=== PATIENT | female | born 1945 | race American Indian/Alaskan Native ===

== ENCOUNTER 2017-08-18 13:18 | Outpatient (CLI) | payer MEDICARE ==
--- NOTE | 2017-08-18 14:11 | XRay Report ---
Bilateral shoulder: History: Shoulder pain. Findings: There is moderate arthritic changes noted at the a.c. joint and glenohumeral joint bilaterally. There is deformity noted of the outer acromion with ossification in the adjacent region at the right shoulder and similar changes left shoulder with calcification instead of ossification. Irregularity of the greater tuberosity bilaterally. Impression: Arthritic changes at the a.c. joint and glenohumeral joint bilaterally. Additional changes related to old injury and/or chronic impingement bilaterally.
== END 2017-08-18 13:19 | disposition home or self-care (01) ==
LOC: SPVIMAG 13:18
PROVIDERS: ATTEND Orthopaedic Surgery Sports Medicine
DX: M19.011 Primary osteoarthritis, right shoulder (principal); M19.012 Primary osteoarthritis, left shoulder; M25.812 Other specified joint disorders, left shoulder; M25.811 Other specified joint disorders, right shoulder

== ENCOUNTER 2017-10-28 14:38 | Outpatient (CLI) | payer MEDICARE ==
--- NOTE | 2017-10-28 15:16 | XRay Report ---
RIGHT HIP, 2 views: History: Right hip pain. Mild osteopenia. Minimal osteoarthritic changes are identified at the right hip. No evidence for fracture, dislocation, bone lesion or osteonecrosis. 4.5 cm calcified uterine fibroid is noted in the right side of the pelvis. IMPRESSION: Mild osteopenia. Mild degenerative changes.
== END 2017-10-28 14:39 | disposition home or self-care (01) ==
LOC: SPVIMAG 14:38
PROVIDERS: ATTEND Orthopaedic Surgery Sports Medicine
DX: M16.11 Unilateral primary osteoarthritis, right hip (principal); M85.88 Other specified disorders of bone density and structure, other site